=== PATIENT | female | born 1985 | race Caucasian/White ===

== ENCOUNTER 2017-08-08 17:35 | Emergency (ER) | payer MEDICAID ==
[~2017-08-08] VITALS: Ht 162.6 cm; Wt 75.3 kg
[2017-08-08 17:42] VITALS: Ht 162.6 cm; Wt 75.3 kg
[2017-08-08 20:23] LABS: microscopic required? NO
[2017-08-08 20:49] LABS: urine erythrocyte NEGATIVE (NEGATIVE)
[2017-08-08 22:34] VITALS: BP 117/70
== END 2017-08-08 22:34 | disposition home or self-care (01) ==
LOC: ED 17:35
PROVIDERS: Emergency Medicine
DX: O26.892 Other specified pregnancy related conditions, second trimester (principal); I10 Essential (primary) hypertension; G43.909 Migraine, unspecified, not intractable, without status migrainosus; Z3A.19 19 weeks gestation of pregnancy